=== PATIENT | male | born 1950 | race African-American/Black ===

== ENCOUNTER 2016-12-06 14:27 | Inpatient (IN) | payer MEDICARE, BC ==
[2016-12-06] MEDS ORDERED: Ibuprofen 200 MG TAB ONE (14:45)
[2016-12-06] MEDS ORDERED: ISOVUE-370 76%-LOCM 1 ML ONE (17:11)
[2016-12-06 17:17] LABS: Bilirubin Negative (Negative); Blood, Urine Negative (Negative); Glucose, Urine (Dipstick) Negative (Negative); Ketone, Urine Negative (Negative); Nitrite Negative (Negative); Protein, Urine (Dipstick) Trace mg/dL (Neg-Trace); Urobilinogen 0.2 mg/dL (0.2-1.0)
[2016-12-06 17:43] LABS: #Lymphocytes 0.9 thou/uL (1.20-3.40); #Monocytes 0.5 thou/uL (0.11-0.59); #Neutrophils 7.2 thou/uL (1.40-6.50); %Basophils 0.3 % (0.0-1.0); %Eosinophils 0.2 % (0.0-10.0); %Lymphocytes 10.1 % (21.0-51.0); %Monocytes 5.7 % (0.0-10.0); Hematocrit 39.3 % (42.0-52.0); Mean Platelet Volume 8.6 fL (7.4-10.4); Red Blood Cell (RBC) Count 4.42 mill/uL (4.70-6.10); White Blood Cell (WBC) Count 8.6 thou/uL (4.8-10.8)
[2016-12-06 17:52] LABS: Lactic Acid - Sepsis 0.9 mmol/L (0.5-2.2)
[2016-12-06 18:08] LABS: ALT (SGPT) 8 U/L (8-55); AST (SGOT) 11 U/L (5-34); Alkaline Phosphatase 63 U/L (40-150); Anion Gap 12 mmol/L (10-20); BUN (Urea Nitrogen) 20 mg/dL (8.4-25.7); Bilirubin, Total 0.5 mg/dL (0.2-1.2); CK (CPK) 194 U/L (30-200); Calc. Creatinine Clearance 0 mL/min (70-130); Calcium 9.1 mg/dL (7.8-10.44); Carbon Dioxide 23 mmol/L (23-31); Chloride 102 mmol/L (98-107); Estimated GFR-MDRD 42; Globulin 3.4 g/dL (2.4-3.5); Lipase 27 U/L (8-78); Protein, Total 7.4 g/dL (5.8-8.1)
[2016-12-06 18:10] LABS: Troponin I Less than 0.010 ng/mL (< 0.028)
--- NOTE | 2016-12-06 20:27 | RAD ---
ONE VIEW CHEST: Comparison: 06-20-09 FINDINGS: Normal cardiac silhouette. The pulmonary vessels and hilum are normal. Costophrenic angles are clear . No masses or consolidation. No pneumothorax or osseous abnormality. Scarring or atelectasis in the left lung base. IMPRESSION: No acute cardiopulmonary process. POS: [facility]
[2016-12-06 20:30] LABS: PTT 31.9 SEC (22.9-36.1); Prothrombin Time 14.1 SEC (12.0-14.7)
[2016-12-06] MEDS ORDERED: cefTRIAXone\\ROCEPHIN 1 GM VIAL ONE (20:37)
[2016-12-06 21:15] LABS: Troponin I Less than 0.010 ng/mL (< 0.028)
--- NOTE | 2016-12-06 22:12 | CT ---
NONCONTRAST HEAD CT: History: Weakness. Comparison: None. Technique: Noncontrast head CT is performed from skull base to skull vertex. FINDINGS: No parenchymal hemorrhage. No extraaxial hematoma. No midline shift. Basilar cisterns are patent. Br ain volume is age appropriate. Cortical ghotra white matter differentiation is preserved. Ventricles and sulci are patent and symmetric. Calvarium is intact. Adequate aeration of the sinuses and mastoid air cells. IMPRESSION: No acute intracranial process. POS: [facility]
--- NOTE | 2016-12-06 22:47 | CT ---
CT AORTOGRAM OF THE CHEST: History: Body aches, cough, weakness. Comparison: None. Technique: CT angiogram of the chest was performed in the axial plane. Coronal and bilateral oblique 3D reformatted images are submitted for interpretation. FINDINGS: Trachea and central bronchi are patent. Linear opacities in both lower lobes likely due to scarring or atelectasis. More focal opacification in both lower lobes may represent atelectasis or infiltrate . There is no pleural effusion. No pneumothorax. No mediastinal mass, lymphadenopathy or hematoma. Heart size is within normal limits. There are jordin nary calcifications. The thoracic aorta and the abdominal aorta have an overall normal caliber. No p eriaortic fat stranding. Visualized upper solid organs are grossly unremarkable. Right renal cyst, m easuring 4.2 cm is noted. The gallbladder is surgically absent. There is also a cyst in the left kid yoshi measuring 1.6 cm. There are no osteoblastic or osteolytic lesions. Suboptimal evaluation of the pulmonary artery system due to inadequate contrast opacification second agustin to mistiming of bolus. There is adequate contrast opacification of the central pulmonary arteries without filling defects. Evaluation of lobar, segmental and subsegmental arteries is limited. IMPRESSION: 1. Limited evaluation of the pulmonary arterial system due to timing of bolus. 2. No central pulmonary embolus. The lobar, segmental, and subsegmental arteries cannot be adequatel y assessed. 3. Opacities in the lung bases represent areas of scarring and atelectasis. Possible infiltrates in the left and right lung base cannot be completely excluded. Continued surveillance is recommended. 4. Bilateral renal cysts. POS: [facility]
[2016-12-06] MEDS ORDERED: Sodium Chloride 0.9% 1,000 ML IV SCH (23:47)
[2016-12-06 23:50] LABS: Troponin I Less than 0.010 ng/mL (< 0.028)
[2016-12-07 02:59] LABS: Troponin I 0.018 ng/mL (< 0.028)
[2016-12-07] MEDS ORDERED: Pepto Bismol Chew TAB PO PRN (08:16)
[2016-12-07] MEDS ORDERED: Ondansetron HCl/PF 4 MG/2 ML Vial IVP PRN (08:16)
--- NOTE | 2016-12-07 08:29 | HP ---
DATE OF SERVICE: 12/07/2016 HISTORY OF PRESENT ILLNESS: This is a 65-year-old black male with diarrhea. The patient was doing well until Wednesday evening after having dinner he developed acute onset of diarrhea. He had chicke n, cabbage, cornbread and gravy for dinner. Immediately afterwards, he began having nausea and diar bora. He did not complain of any fever. This progressed throughout Wednesday night and Wednesday. He also had diarrhea this morning. He does not complain of any chest pain. His abdomen is queasy, but does not complain of pain. He is doing well other than diarrhea. He states he has had this once i n the past. PAST MEDICAL HISTORY: Hypertension, hyperlipidemia, headaches, SVT, prostate cancer 09/2008. PAST SURGICAL HISTORY: Inguinal hernia repair bilaterally, removal of foreign body left lung, colon oscopy with polyp resection in 11/2013, prostate cancer treated with external beam radiation. FAMILY HISTORY: Father from a CVA. Mother with diabetes and CVA, sister with breast cance r, brother with prostate cancer. Sister with lung cancer. Paternal uncle with heart disease. 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 He is [place] and has 2 sons. He does not smoke, does not drink. MEDICATIONS: Aspirin 81 mg daily, omeprazole 40 mg daily, simvastatin 40 daily, Norvasc 5 mg daily, carvedilol 12.5 b.i.d. ALLERGIES: None. PHYSICAL EXAMINATION: VITAL SIGNS: Temperature 100.2, pulse 105, respirations 16, pulse oximetry 94, blood pressure 143/6 5. GENERAL: In no acute distress. HEENT: Clear. HEART: Regular rate and rhythm. LUNGS: Clear. ABDOMEN: Soft, nontender. EXTREMITIES: No edema. LABORATORY: Urine; specific gravity 1.024, negative for protein. Sodium 133, potassium 3.9, creati nine 1.93. Troponin less than 0.010, lipase 27. CTA of the chest and thorax negative. Brain CT ne gative. Chest x-ray negative. ASSESSMENT: 1. Acute gastroenteritis. 2. Fever. 3. Acute kidney disease, rule out chronic kidney disease. 4. Hypertension. 5. Hyperlipidemia. 6. History of supraventricular tachycardia. 7. History of prostate cancer. PLAN: 1. Hydrate. 2. Stool studies. 3. Monitor creatinine. 4. Resume home medications.
[2016-12-07] MEDS ORDERED: Sodium Chloride 0.9% 1,000 ML IV SCH (08:30)
[2016-12-07] MEDS ORDERED: Non-Formulary Item 1 EACH (Carvedilol [Carvedilol] 12.5 MG) PO SCH (09:00)
[2016-12-07] MEDS: Famotidine/PF 20 mg/2ml Vial SLOW IVP SCH ×2 (09:41→20:30)
[2016-12-07] MEDS: Carvedilol 6.25 MG TAB PO SCH ×2 (09:41→20:30)
[2016-12-07] MEDS: Enoxaparin Sodium 40 MG/0.4 ML SYRINGE SC SCH (09:42)
[2016-12-07] MEDS: NS 0.9% w/ 20 MEQ KCL 1,000 ML IV SCH ×2 (10:11→20:55)
[2016-12-07] MEDS ORDERED: Acetaminophen 325 MG TAB PO PRN (13:39)
[2016-12-07] MEDS ORDERED: HYDROcodone/Acetaminophen 7.5/325 mg Tablet PO PRN ×2 (13:44→16:48)
[2016-12-07] MEDS: Acetaminophen 650 MG Suppository PR PRN ×2 (13:44→20:42)
[2016-12-07 13:58] LABS: #Lymphocytes 0.8 thou/uL (1.20-3.40); #Monocytes 0.5 thou/uL (0.11-0.59); #Neutrophils 9.4 thou/uL (1.40-6.50); %Eosinophils 0.1 % (0.0-10.0); %Lymphocytes 7.8 % (21.0-51.0); %Monocytes 4.9 % (0.0-10.0); Hematocrit 38.7 % (42.0-52.0); Mean Platelet Volume 8.8 fL (7.4-10.4); Red Blood Cell (RBC) Count 4.33 mill/uL (4.70-6.10); White Blood Cell (WBC) Count 10.8 thou/uL (4.8-10.8)
[2016-12-07 14:22] LABS: ALT (SGPT) 7 U/L (8-55); AST (SGOT) 15 U/L (5-34); Alkaline Phosphatase 58 U/L (40-150); Anion Gap 16 mmol/L (10-20); BUN (Urea Nitrogen) 16 mg/dL (8.4-25.7); Bilirubin, Total 0.3 mg/dL (0.2-1.2); Calc. Creatinine Clearance 59 mL/min (70-130); Calcium 8.5 mg/dL (7.8-10.44); Carbon Dioxide 18 mmol/L (23-31); Chloride 105 mmol/L (98-107); Estimated GFR-MDRD 50; Globulin 3.3 g/dL (2.4-3.5); Protein, Total 6.9 g/dL (5.8-8.1)
--- NOTE | 2016-12-07 14:34 | CON ---
DATE OF CONSULTATION: 12/07/2016 GI INPATIENT CONSULTATION NOTE REQUESTING PHYSICIAN: Dr. Fragoso. REASON FOR CONSULTATION: Diarrhea. HISTORY OF PRESENT ILLNESS: Clark Corbett is a very pleasant, 66-year-old -[place] gentlema n who was admitted to the hospital overnight with dehydration and acute diarrhea. He has previously seen my GI colleague, Dr. Alfonso Eubanks. His last screening colonoscopy in 2013 showed only a small single tubular adenoma, which was removed with repeat exam in 5 years recommended. That woul d be 2019. He has a history of prostate cancer status post radiation therapy in 2008 as well as cele ateral inguinal hernia repair. He has no chronic gastrointestinal symptoms. Two nights ago, he had the sudden acute onset of watery diarrhea. He estimates at least 5 watery loose bowel movements pe r day over the course of the weekend, including today. He was having some subjective fevers at home and indeed on presentation, he is afebrile here up to 103. He was found on lab work to be signific antly dehydrated with creatinine up to 1.9, CK 208. He actually had a syncopal episode this morning , fell down and suffered a forehead laceration. He was not having any symptoms prior 2 days ago. W ith all this diarrhea, he denies any significant nausea, any vomiting or abdominal pain. His stool is normal in color. There is no melena or hematochezia. Stool studies were performed, which showed elevated fecal lactoferrin, but are negative for C. difficile and other bacterial pathogens. REVIEW OF SYSTEMS: Full review of systems including constitutional, head, eyes, ears, nose, throat, GI, , cardiovascular, respiratory, musculoskeletal, and neurologic systems is negative except as noted in the HPI. PAST MEDICAL HISTORY: 1. Colon polyp, adenoma removed at 2013. 2. Hypertension 3. Hyperlipidemia. 4. SVT. 5. Prostate cancer status post radiation therapy 2008. 6. Bilateral inguinal hernia repair. ALLERGIES: No known drug allergies. OUTPATIENT MEDICATIONS: Aspirin 81 mg daily, omeprazole 40 mg daily, Zocor 40 mg daily, Norvasc 5 m g daily, Coreg. FAMILY HISTORY: Negative for gastrointestinal malignancy. SOCIAL HISTORY: No smoking or alcohol use. PHYSICAL EXAMINATION: VITAL SIGNS: Temperature 103 degrees Fahrenheit, pulse 95, blood pressure 144/73, 94% oxygen satura tion on room air. GENERAL APPEARANCE: No acute distress. SKIN: He has a laceration to the forehead. No jaundice. No other rashes were palpable. EYES: No scleral icterus. Extraocular movements intact. ENT: Mucous membranes moist, no oral lesions. LYMPH: No submandibular or supraclavicular lymphadenopathy. THYROID: Nontender to palpation. HEART: Regular rate and rhythm. LUNGS: Clear to auscultation bilaterally. ABDOMEN: Bowel sounds present. Soft and nontender to palpation throughout. EXTREMITIES: No peripheral edema. NEUROLOGIC: Cranial nerves II-XII intact bilaterally. VESSELS: Radial pulses 2+ bilaterally. LABORATORY STUDIES: WBC 8.6, hemoglobin 13.1, and platelets 178. INR 1.1. Sodium 133, potassium 3 .9, BUN 20, creatinine 1.93. CK elevated at 208, CK-MB normal at 0.5. Troponin negative x3. Lipas e normal at 27. LFTs all normal with total bilirubin 0.5, alkaline phosphatase 63, AST 11, ALT 8, a lbumin 4.0. Urinalysis is negative. Stool studies show elevated fecal lactoferrin, but otherwise n egative including C. difficile antigen and toxin, Campylobacter and stool culture so far. IMAGING STUDIES: Chest x-ray showed no acute processes. CT head was normal. CT angiogram of the t horax demonstrated no evidence of pulmonary embolus. There is some scarring at the lung bases bilat erally. ASSESSMENT AND PLAN: Acute gastroenteritis, likely viral. The patient's presentation is all acute, it appears with severe dehydration secondary to acute onset diarrhea over the past couple of days. I note the elevated fecal lactoferrin. This is nonspecific and expected to be elevated with acute gastroenteritis. This likely represents a viral gastroenteritis. Continue supportive cares as you are doing. No indication for any endoscopic investigations or other specialized diagnostics from a GI standpoint at this time. Thank you for the consultation. Please call with questions or concerns.
[2016-12-08] MEDS: Loperamide HCl 2 MG CAP PO PRN ×2 (00:19→14:45)
[2016-12-08] MEDS: NS 0.9% w/ 20 MEQ KCL 1,000 ML IV SCH ×3 (04:04→22:47)
[2016-12-08 06:16] LABS: #Lymphocytes 1.1 thou/uL (1.20-3.40); #Monocytes 0.5 thou/uL (0.11-0.59); #Neutrophils 5.5 thou/uL (1.40-6.50); %Basophils 0.2 % (0.0-1.0); %Eosinophils 0.1 % (0.0-10.0); %Lymphocytes 15.6 % (21.0-51.0); %Monocytes 6.6 % (0.0-10.0); Hematocrit 36.9 % (42.0-52.0); Mean Platelet Volume 8.7 fL (7.4-10.4); Red Blood Cell (RBC) Count 4.13 mill/uL (4.70-6.10); White Blood Cell (WBC) Count 7.1 thou/uL (4.8-10.8)
[2016-12-08 06:19] VITALS: BMI 28.5
[2016-12-08 06:38] LABS: Anion Gap 11 mmol/L (10-20); BUN (Urea Nitrogen) 14 mg/dL (8.4-25.7); Calc. Creatinine Clearance 58 mL/min (70-130); Calcium 8.7 mg/dL (7.8-10.44); Carbon Dioxide 21 mmol/L (23-31); Chloride 108 mmol/L (98-107); Estimated GFR-MDRD 51
--- NOTE | 2016-12-08 07:58 | CON ---
DATE OF CONSULTATION: 12/07/2016 TIME: 5:00 p.m. HISTORY OF PRESENT ILLNESS: This is a 66-year-old black male admitted for severe diarrhea who while in the hospital had a syncopal episode and fell and hit his head, questionable loss of consciousnes s. He has no complaints except for slight pain in the right forehead area above his right eye where a laceration is present, no blurred vision, no difficulty breathing through his nose, no numbness. PAST MEDICAL HISTORY: Hypertension, hyperlipidemia, SVT, prostate cancer. PAST SURGICAL HISTORY: Inguinal hernia repair, removal of foreign body of left lung, colonoscopy. FAMILY HISTORY: Noncontributory to this situation. 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 Does not smoke or drink. MEDICATIONS: Listed in MAR. ALLERGIES: There are no known drug allergies. PHYSICAL EXAMINATION: VITAL SIGNS: Patient's vital signs are currently stable, he is afebrile. GENERAL: He is awake, alert, oriented x3, in no acute distress. He does have an approximately 5.5 cm laceration extending from the right medial eyebrow all the way across and superior to the right lateral eyebrow, this is deep, it goes down to pericranium. There is some retraction of the subgale al tissue. It is fairly linear in shape. He also has another 1 cm laceration to the bridge of his nose. His nares is patent bilaterally. There is no blood in his nares. His pupils are equal, roun d, and reactive to light and accommodation. His occlusion is good. His maxilla is stable. No crep itus or deformity is noted of orbital rims or nasal bones. No nasal septal hematoma on speculum exa m. ASSESSMENT: A 66-year-old male status post syncopal episode and fall with complex laceration to the forehead and simple laceration to the bridge of the nose. PLAN: Will washout wounds at the bedside and close at the bedside.
--- NOTE | 2016-12-08 08:04 | OP ---
DATE OF PROCEDURE: 12/07/2016 SURGEON: Marcos Houston D.D.S. PREOPERATIVE DIAGNOSES: 1. Complex right forehead laceration. 2. Simple bridge of nose laceration. PROCEDURE PERFORMED: 1. Washout and closure of right forehead laceration. 2. Washout and closure of the bridge of nose laceration. COMPLICATIONS: None. DRAINS: None. SPECIMENS: None. ANESTHESIA: Local anesthesia at bedside. ESTIMATED BLOOD LOSS: Minimal, less than 5 mL. BRIEF PATIENT HISTORY AND PROCEDURE IN DETAIL: This is a 66-year-old man admitted for diarrhea with a syncopal episode in the hospital, fell, sustained the above noted lacerations. The patient was p repped in sterile fashion, normal saline irrigation of both wounds. The small 1 cm laceration of th e root of the nose was very superficial through skin and subcutaneous tissue. This was irrigated wi th normal saline and closed with a 5-0 Prolene. Forehead laceration was very deep with retraction o f the subgaleal tissues and exposure of the pericranium. This was irrigated thoroughly, closed in a layered fashion with deep 4-0 Vicryl followed by skin with 4-0 silk. The patient tolerated the pro cedure well. A pressure dressing was placed after Steri-Strip application. Will plan on suture rem oval in 7 days. DISPOSITION: The patient was stable upon completion of the procedure.
--- NOTE | 2016-12-08 08:40 | PRG ---
DATE OF SERVICE: 12/08/2016 SUBJECTIVE: The patient is doing well. Last diarrhea was at midnight, last night. Does not have m uch of an appetite yet. No complaints of abdominal pain, nausea, or vomiting. OBJECTIVE: VITAL SIGNS: Temperature 98.3, pulse 79, respirations 16, pulse ox 97, blood pressure 123/72. HEENT: Forehead laceration repair by Dr. Houston. Dressing clear. Pupils equal, reactive. Extrao cular movements intact. HEART: Regular rate and rhythm. LUNGS: Clear. ABDOMEN: Soft. EXTREMITIES: Left arm appears swollen from the IV. LABORATORY DATA: Urine clear. Sodium 136, potassium 4.0, CO2 21 up from 18, creatinine 1.64. Stoo l culture is negative. C. difficile screen negative. ASSESSMENT: 1. Acute gastroenteritis, probably viral in origin. 2. Dehydration. 3. Prerenal azotemia, creatinine improving to 1.64 today. 4. Fever, resolved. 5. Hypertension. 6. Hyperlipidemia. 7. History of supraventricular tachycardia. 8. History of prostate cancer. PLAN: 1. Continue hydration today. 2. Change IV to the other arm due to edema. 3. Recheck CBC and creatinine in the a.m. 4. Possibly discharge home in the a.m. 5. Advance to full liquid diet with no dairy.
[2016-12-08] MEDS: Carvedilol 6.25 MG TAB PO SCH ×2 (09:43→22:53)
[2016-12-08] MEDS: Enoxaparin Sodium 40 MG/0.4 ML SYRINGE SC SCH (09:44)
[2016-12-08] MEDS: Famotidine/PF 20 mg/2ml Vial SLOW IVP SCH ×2 (11:55→22:53)
[2016-12-09 06:08] LABS: #Eosinphils 0.1 thou/uL (0.0-0.7); #Lymphocytes 1.3 thou/uL (1.20-3.40); #Monocytes 0.7 thou/uL (0.11-0.59); #Neutrophils 2.8 thou/uL (1.40-6.50); %Basophils 0.3 % (0.0-1.0); %Eosinophils 2.1 % (0.0-10.0); %Lymphocytes 26.8 % (21.0-51.0); %Monocytes 14.6 % (0.0-10.0); Hematocrit 34.4 % (42.0-52.0); Mean Platelet Volume 8.9 fL (7.4-10.4); Red Blood Cell (RBC) Count 3.83 mill/uL (4.70-6.10); White Blood Cell (WBC) Count 4.9 thou/uL (4.8-10.8)
[2016-12-09 06:35] LABS: Anion Gap 13 mmol/L (10-20); BUN (Urea Nitrogen) 11 mg/dL (8.4-25.7); Calc. Creatinine Clearance 68 mL/min (70-130); Calcium 8.4 mg/dL (7.8-10.44); Carbon Dioxide 18 mmol/L (23-31); Chloride 109 mmol/L (98-107); Estimated GFR-MDRD 60
[2016-12-09] MEDS: NS 0.9% w/ 20 MEQ KCL 1,000 ML IV SCH (06:52)
[2016-12-09] MEDS: Carvedilol 6.25 MG TAB PO SCH (08:42)
[2016-12-09] MEDS: Famotidine/PF 20 mg/2ml Vial SLOW IVP SCH (08:43)
[2016-12-09] MEDS: Enoxaparin Sodium 40 MG/0.4 ML SYRINGE SC SCH (08:43)
[2016-12-09 12:19] VITALS: BP 144/75; TEMP 98.9
--- NOTE | 2016-12-09 17:19 | DIS ---
DATE OF ADMISSION: 12/07/2016 DATE OF DISCHARGE: 12/09/2016 DISCHARGE DIAGNOSES: 1. Acute gastroenteritis, viral in origin. 2. Dehydration. 3. Syncope. 4. Prerenal azotemia. 5. Fever, resolved. 6. Facial laceration. 7. Hypertension. 8. Hyperlipidemia. 9. History of supraventricular tachycardia. 10. History of prostate cancer. FOLLOWUP: 1. Follow up [address] Eduin Fragoso and on Wednesday for suture removal. 2. Follow up with Dr. Houston as directed. 3. [place] diet. Avoid dairy products. BRIEF HISTORY: This is a 66-year-old black male with a history of hypertension, hyperlipidemia, was doing well until one day prior to admission, developed acute onset of diarrhea. This persisted thr oughout the day. He then presented to the emergency room and was found to be significantly dehydrat ed with an elevated creatinine. He was then admitted for hydration and evaluation. HOSPITAL COURSE: Patient is doing well. He has had minimal abdominal pain. He had marked diarrhea for 24-36 hours. However, his diarrhea has significantly improved. Today we will advance him to a regular diet avoiding dairy and if he does well, he will be discharged this afternoon. He will fol low up in the office in the a.m. and also on Wednesday for suture removal. During the hospital stay, rohith horton was on his way to the bathroom and passed out and hit his head. He sustained a right forehead lac eration over his eyebrow. Dr. Houston was consulted and did the repair. Patient is doing well. He previously had a CT of his head, which was found to be unremarkable. Patient complains of minimal pain. At this time, he has no headache, no nausea, no vomiting. He is doing well. He is ambulatin g to the bathroom without difficulty, but with assistance. Today he will ambulate the singletary and if rohith horton does well, should be able to go home. DISCHARGE MEDICATIONS: 1. Aspirin 81 daily. 2. Omeprazole 40 daily. 3. Simvastatin 40 daily. 4. Norvasc 5 mg daily. 5. Carvedilol 12.5 p.o. b.i.d. LABORATORY DATA AND IMAGING: CT head negative. Chest x-ray negative. Chest CTA negative. White c ount 4.9, H\T\H 11 and 34, creatinine was 1.65-1.64-1.41. Initial creatinine was 1.93.
--- NOTE | 2016-12-12 11:45 | EKG ---
Test Reason : Blood Pressure : / mmHG Vent. Rate : 090 BPM Atrial Rate : 090 BPM P-R Int : 210 ms QRS Dur : 080 ms QT Int : 346 ms P-R-T Axes : 052 011 062 degrees QTc Int : 423 ms Sinus rhythm with 1st degree A-V block Nonspecific T wave abnormality Abnormal ECG Confirmed by JAMES ALEXANDER, NILO (12), offline editor SUMMER TIAN ([id number]) on 12/12/2016 11:45:11 AM Referred By: Confirmed By:NILO RAMIREZ MD
--- NOTE | 2016-12-12 11:45 | EKG ---
Test Reason : BODY ACHES Blood Pressure : / mmHG Vent. Rate : 088 BPM Atrial Rate : 088 BPM P-R Int : 204 ms QRS Dur : 082 ms QT Int : 338 ms P-R-T Axes : 056 006 069 degrees QTc Int : 408 ms Normal sinus rhythm Septal infarct , age undetermined Abnormal ECG Confirmed by JAMES ALEXANDER, NILO (12), offline editor SUMMER TIAN ([id number]) on 12/12/2016 11:45:06 AM Referred By: JAMES Confirmed By:NILO RAMIREZ MD
== END 2016-12-09 14:42 | disposition home or self-care (01) | DRG 392 ==
LOC: ERS 14:27 → 2SW 22:30 → OBSVTOIN 12-07 12:03 → 2NO 12-07 13:02 → 2SW 12-07 13:09 → 2NO 12-07 15:49
PROVIDERS: ADMIT Family Medicine; ATTEND Family Medicine
PROC: 0JQ13ZZ Repair Face Subcutaneous Tissue and Fascia, Percutaneous Approach (ICD-10-PCS; principal; 2016-12-07)
PROC: 0JQ13ZZ Repair Face Subcutaneous Tissue and Fascia, Percutaneous Approach (ICD-10-PCS; 2016-12-07)
DX: A08.4 Viral intestinal infection, unspecified (principal); N17.9 Acute kidney failure, unspecified; I47.1 Supraventricular tachycardia; K52.9 Noninfective gastroenteritis and colitis, unspecified; I10 Essential (primary) hypertension; E78.5 Hyperlipidemia, unspecified; Z85.46 Personal history of malignant neoplasm of prostate; Z92.3 Personal history of irradiation; Z86.010 Personal history of colon polyps; R55 Syncope and collapse; S01.21XA Laceration without foreign body of nose, initial encounter; S01.81XA Laceration without foreign body of other part of head, initial encounter; W18.30XA Fall on same level, unspecified, initial encounter; Y92.230 Patient room in hospital as the place of occurrence of the external cause; E86.0 Dehydration; Z79.82 Long term (current) use of aspirin
CPT/HCPCS: 36415; 70450; 71010; 71275; 80048; 80053; 81003; 82550; 82553; 83605; 83630; 83690; 83880; 84146; 84484; 85025; 85379; 85610; 85730; 87015; 87040; 87045; 87046; 87077; 87081; 87186; 87324; 87449; 87899; 93005; 96361; 96365; A4216; J0696; J1650; J2405; S0028

== ENCOUNTER 2017-04-28 16:39 | Inpatient (IN) | payer MEDICARE, BC ==
[2017-04-28 17:13] LABS: #Eosinphils 0.2 thou/uL (0.0-0.7); #Lymphocytes 2.7 thou/uL (1.20-3.40); #Monocytes 0.5 thou/uL (0.11-0.59); #Neutrophils 4.5 thou/uL (1.40-6.50); %Basophils 0.3 % (0.0-1.0); %Lymphocytes 34.3 % (21.0-51.0); %Neutrophils 57.4 % (42.0-75.0); Hemoglobin 13.7 g/dL (14.0-18.0); Mean Corpuscular HGB CONC 32.6 g/dL (32.0-36.0); Mean Corpuscular Hemoglobin 29.7 pg (27.0-31.0); Mean Corpuscular Volume 91.2 fl (80.0-94.0); Mean Platelet Volume 8.4 fL (7.4-10.4); Platelet Count 219 thou/uL (130-400); RBC Distribution Width 12.8 % (11.5-14.5); Red Blood Cell (RBC) Count 4.61 mill/uL (4.70-6.10); White Blood Cell (WBC) Count 7.8 thou/uL (4.8-10.8)
[2017-04-28 17:35] LABS: ALT (SGPT) 9 U/L (8-55); AST (SGOT) 13 U/L (5-34); Albumin 4.5 g/dL (3.4-4.8); Alkaline Phosphatase 74 U/L (40-150); Anion Gap 14 mmol/L (10-20); BUN (Urea Nitrogen) 16 mg/dL (8.4-25.7); Bilirubin, Total 0.4 mg/dL (0.2-1.2); CK (CPK) 195 U/L (30-200); Calc. Creatinine Clearance 0 mL/min (70-130); Calcium 9.7 mg/dL (7.8-10.44); Carbon Dioxide 25 mmol/L (23-31); Chloride 104 mmol/L (98-107); Estimated GFR-MDRD 53; Globulin 3.3 g/dL (2.4-3.5); Glucose 107 mg/dL (80-115); Potassium 3.9 mmol/L (3.5-5.1); Protein, Total 7.8 g/dL (5.8-8.1); Sodium 139 mmol/L (136-145)
[2017-04-28 17:40] LABS: CKMB 1.4 ng/mL (0-6.6); Troponin I 0.044 ng/mL (< 0.028)
--- NOTE | 2017-04-28 18:50 | RAD ---
CHEST TWO VIEW 04/28/17 HISTORY: Chest pain COMPARISON: Chest one view 12/06/16. FINDINGS: The lungs are clear. No pneumothorax or effusion. Cardiac silhouette and mediastinal contours are wit hin normal limits. Similar appearance of scarring in the left lower lobe. There appears to be interposition of bowel between the left hemidiaphragm and the spleen, also a roxi lar finding. No acute osseous abnormality. IMPRESSION: No acute intrathoracic abnormality. No significant change. POS: [facility]
[2017-04-28] MEDS ORDERED: Acetaminophen 325 MG TAB PO PRN (20:20)
[2017-04-28] MEDS ORDERED: Ondansetron ODT 4 MG TAB SL PRN (20:20)
[2017-04-28] MEDS ORDERED: Ondansetron HCl/PF 4 MG/2 ML Vial IVP PRN (20:20)
[2017-04-28 20:25] VITALS: BMI 25.8
[2017-04-28] MEDS ORDERED: Aspirin 325 MG TAB PO SCH (20:30)
[2017-04-28 20:52] LABS: Troponin I 0.042 ng/mL (< 0.028)
[2017-04-28] MEDS: Melatonin 3 MG TAB PO PRN (22:52)
[2017-04-28 23:29] LABS: Troponin I 0.036 ng/mL (< 0.028)
[2017-04-29] MEDS ORDERED: Nitroglycerin 2% Ointment 1 INCH/1 GM Packet TOP SCH (04:00)
[2017-04-29] MEDS: Carvedilol 6.25 MG TAB PO SCH ×2 (08:30→20:54)
[2017-04-29] MEDS ORDERED: Enoxaparin Sodium 80 MG/0.8 ML SYRINGE SC SCH ×2 (09:00)
[2017-04-29] MEDS ORDERED: Aspirin 325 MG TAB PO SCH (09:00)
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
[2017-04-29] MEDS ORDERED: Lidocaine 1% (PF) 30 ML VIAL ONE (10:58)
[2017-04-29] MEDS ORDERED: Nitroglycerin 100MG/250ML BOT 250 ML ONE (10:59)
[2017-04-29] MEDS ORDERED: Heparin 10,000 UNITS/1 ML VIAL ONE (10:59)
[2017-04-29] MEDS ORDERED: Verapamil 5 MG/2 ML VIAL ONE (10:59)
[2017-04-29] MEDS ORDERED: Communication Order-Pharmacy FS SCH (11:00)
[2017-04-29] MEDS ORDERED: Sodium Chloride 0.9% 1,000 ML IV SCH (11:00)
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
[2017-04-29] MEDS ORDERED: Iopamidol 370 76% 50 ML VIAL FS ONE (11:35)
[2017-04-29] MEDS ORDERED: Iopamidol 370 76% 100 ML VIAL ONE (11:35)
[2017-04-29] MEDS ORDERED: Midazolam HCl 2 mg/2 ml Vial ONE (11:40)
[2017-04-29] MEDS ORDERED: Fentanyl 100 MCG/2 ML VIAL ONE (11:40)
--- NOTE | 2017-04-29 11:46 | ULT ---
ABDOMINAL ULTRASOUND: History: Upper abdominal pain and right sided pain. FINDINGS: Real-time images of the upper abdomen demonstrate a normal appearing gallbladder. No gallbladder wall thickening. The common duct is 4 mm. Technologist reports a negative ultrasound Hardy's sign. Liver measures 16 cm in length. No focal abnormalities. The right and left kidneys are normal in size. The right kidney measures 11.7 and the left kidney 10 cm in size. There is a 6.3 x 4 cm right renal cyst present and a small left renal cyst measuring 1.6 cm. Both kidneys appear to be of mild increased echogenicity. Contour of the left kidney is somewhat lobulated. The pancreas is obscured. There is also partial obscuration of the abdominal aorta and IVC mainly dis tally. No aneurysm is demonstrated. Imaging of the right lower quadrant failed to definitely identify an appendix. IMPRESSION: 1. Bilateral renal cysts with suggestion of some slight increased echogenicity to both kidneys sugges ting the possibility of some underlying medial renal parenchymal disease. 2. No evidence of gallstones. 3. Appendix was not definitely visualized. If there is strong clinical suspicion of appendix, CT woul d be recommended. POS: [facility]
[2017-04-29] MEDS ORDERED: TICAGRELOR 90 MG TABLET ONE (12:45)
[2017-04-29] MEDS ORDERED: Nitroglycerin 0.4 MG TAB 1 EACH SL PRN (12:49)
[2017-04-29] MEDS ORDERED: Morphine 5 MG/ML SYRINGE SLOW IVP PRN (13:06)
[2017-04-29] MEDS: Sodium Chloride 0.9% 1,000 ML IV SCH ×2 (13:10→22:30)
[2017-04-29] MEDS: TICAGRELOR 90 MG TABLET PO SCH (20:50)
[2017-04-29] MEDS: Melatonin 3 MG TAB PO PRN (20:54)
[2017-04-29] MEDS ORDERED: Atorvastatin Calcium 20 MG TAB PO SCH (21:00)
[2017-04-29] MEDS ORDERED: Amlodipine 5 MG TAB PO SCH (21:00)
[2017-04-30 04:56] LABS: #Eosinphils 0.2 thou/uL (0.0-0.7); #Lymphocytes 1.7 thou/uL (1.20-3.40); #Monocytes 0.6 thou/uL (0.11-0.59); #Neutrophils 3.7 thou/uL (1.40-6.50); %Basophils 0.2 % (0.0-1.0); %Monocytes 8.9 % (0.0-10.0); %Neutrophils 59.8 % (42.0-75.0); Mean Corpuscular Hemoglobin 29.7 pg (27.0-31.0); Mean Corpuscular Volume 89.9 fl (80.0-94.0); Mean Platelet Volume 8.6 fL (7.4-10.4); Platelet Count 173 thou/uL (130-400); RBC Distribution Width 12.6 % (11.5-14.5); Red Blood Cell (RBC) Count 3.72 mill/uL (4.70-6.10); White Blood Cell (WBC) Count 6.1 thou/uL (4.8-10.8)
[2017-04-30 05:39] LABS: ALT (SGPT) 7 U/L (8-55); AST (SGOT) 11 U/L (5-34); Albumin 3.4 g/dL (3.4-4.8); Alkaline Phosphatase 55 U/L (40-150); Anion Gap 9 mmol/L (10-20); BUN (Urea Nitrogen) 15 mg/dL (8.4-25.7); Bilirubin, Total 0.5 mg/dL (0.2-1.2); Calc. Creatinine Clearance 66 mL/min (70-130); Calcium 8.8 mg/dL (7.8-10.44); Carbon Dioxide 25 mmol/L (23-31); Chloride 107 mmol/L (98-107); Estimated GFR-MDRD 66; Globulin 2.3 g/dL (2.4-3.5); Glucose 93 mg/dL (80-115); Potassium 4.2 mmol/L (3.5-5.1); Protein, Total 5.7 g/dL (5.8-8.1); Sodium 137 mmol/L (136-145)
[2017-04-30] MEDS: TICAGRELOR 90 MG TABLET PO SCH (07:27)
[2017-04-30] MEDS: Carvedilol 6.25 MG TAB PO SCH (07:27)
[2017-04-30] MEDS ORDERED: Lisinopril 2.5 MG TAB PO SCH (09:00)
--- NOTE | 2017-04-30 10:50 | PRG ---
DATE OF SERVICE: 04/30/2017 SUBJECTIVE: The patient is doing well, postop day #1, status post heart catheterization. No complai nts of any chest pain, shortness of breath. No complaints of nausea. Tolerating a regular diet. OBJECTIVE: VITAL SIGNS: Temperature 98.2, pulse 72, respirations 16, pulse ox 97, blood pressure 133/64. HEART: Regular rate and rhythm. LUNGS: Clear. ABDOMEN: Soft. EXTREMITIES: No edema. LABORATORY DATA: White count 6.1, H&H 11 and 33. Electrolytes normal. Creatinine 1.3, BUN 15. ASSESSMENT: 1. Acute myocardial infarction with the EKG showing improvement at V6. Left bundle-branch block rem ains. 2. Postop day #1, status post heart catheterization with placement of stent x1. The one area of con cern, which was unable to be stented. 3. Hypertension. 4. Hyperlipidemia. 5. Reflux. 6. Prostatitis. 7. Right lower quadrant abdominal pain. We will continue to monitor. PLAN: 1. Possible discharge today. 2. Informed the patient is critical that he maintain low blood pressure and normal lipids. 3. Upon discharge, we will resume his home medications. 4. We will monitor his right lower quadrant abdominal pain and if it resolved, no further workup riya l be needed.
[2017-04-30] MEDS: Sodium Chloride 0.9% 1,000 ML IV SCH (11:00)
[2017-04-30 11:06] VITALS: TEMP 97.4
[2017-04-30 11:56] VITALS: BP 129/80
--- NOTE | 2017-04-30 12:37 | PDOC.CTH ---
Cardiology Progress Note - Subjective He is doing well. His right wrist is doing well with normal radial pulse. No chest pain, tightness ,pressure, SOB. - Objective Vital Signs Temp Pulse Pulse Pulse Resp BP BP 04/30/17 10:58 97.4 F L 78 20 04/30/17 09:55 76 75 129/80 04/30/17 08:00 98.2 F 72 16 04/30/17 07:29 98.2 F 72 16 04/30/17 07:27 71 133/64 04/30/17 04:00 98.2 F 71 18 BP BP Pulse Ox Pulse Ox Pulse Ox 04/30/17 10:58 156/76 H 98 04/30/17 09:55 121/67 97 99 04/30/17 08:00 97 04/30/17 07:29 133/64 97 04/30/17 07:27 04/30/17 04:00 137/65 96 Weight 193 lb 04/29/17 04/30/17 05/01/17 06:59 06:59 06:59 Intake Total 240 240 Output Total 600 Balance -360 240 - Physical Examination General/Neuro: alert & oriented x3, NAD Neck: no JVD present Lungs: CTA, unlabored respirations Heart: RRR Abdomen: NT/ND ( ) Extremities: other: (no edema.) - Telemetry Telemetry Rhythm: NSR - Labs Result Diagrams: 04/30/17 04:17 04/30/17 04:17 Troponin/CKMB CK-MB (CK-2) 1.4 ng/mL (0-6.6) 04/28/17 17:02 Troponin I 0.036 ng/mL (< 0.028) H 04/28/17 22:57 - Assessment/Plan 1. NSTEMI 2. S/P PCI to LCx. PLAN: - BARBARA with brillinta and aspirin for 1 yr. - Statin/BB/ACEI. - Follow up in the office in 1 month. - May discharge home.
--- NOTE | 2017-04-30 13:22 | EKG ---
Test Reason : Blood Pressure : / mmHG Vent. Rate : 069 BPM Atrial Rate : 069 BPM P-R Int : 232 ms QRS Dur : 150 ms QT Int : 436 ms P-R-T Axes : 056 -49 065 degrees QTc Int : 467 ms Sinus rhythm with 1st degree A-V block Left axis deviation Left bundle branch block Abnormal ECG Confirmed by MANJULA ADHIKARI ([id number] on 04/30/2017 1:22:20 PM Referred By: ANNETTE Confirmed By:MANJULA ADHIKARI
== END 2017-04-30 12:14 | disposition home or self-care (01) | DRG 247 ==
LOC: ERS 16:39 → 2SW 18:40 → OBSVTOIN 04-29 13:32
PROVIDERS: ADMIT Family Medicine; ATTEND Family Medicine
PROC: 4A023N7 Measurement of Cardiac Sampling and Pressure, Left Heart, Percutaneous Approach (ICD-10-PCS; principal; 2017-04-29)
PROC: 027034Z Dilation of Coronary Artery, One Artery with Drug-eluting Intraluminal Device, Percutaneous Approach (ICD-10-PCS; 2017-04-29)
PROC: B2111ZZ Fluoroscopy of Multiple Coronary Arteries using Low Osmolar Contrast (ICD-10-PCS; 2017-04-29)
DX: I21.4 Non-ST elevation (NSTEMI) myocardial infarction (principal); E78.00 Pure hypercholesterolemia, unspecified; I44.7 Left bundle-branch block, unspecified; I10 Essential (primary) hypertension; N40.0 Benign prostatic hyperplasia without lower urinary tract symptoms; Z85.46 Personal history of malignant neoplasm of prostate; K21.9 Gastro-esophageal reflux disease without esophagitis; I25.10 Atherosclerotic heart disease of native coronary artery without angina pectoris
CPT/HCPCS: 36415; 71046; 76700; 80053; 82550; 82553; 84484; 85025; 85347; 92928; 93005; 93010; 93306; 93454; 93798; 94760; 99152; 99153; A4216; C1769; C1874; C9600; J1644; J1650; J2001; J2250; J3010

== ENCOUNTER 2017-07-05 19:26 | Emergency (ER) | payer MEDICARE, BC ==
--- NOTE | 2017-07-05 21:36 | RAD ---
TWO VIEWS CHEST: 07/05/2017 HISTORY: Cough and congestion. COMPARISON: 04/28/2017 FINDINGS: The lungs appear mildly hyperinflated, a stable finding. No pneumothorax, pleural fluid, focal conso lidation, or alveolar edema. Heart and mediastinal contours are unchanged. IMPRESSION: No acute findings. POS: [facility]
== END 2017-07-05 20:25 | disposition home or self-care (01) ==
LOC: ERS 19:26
DX: R05 Cough (principal); R09.81 Nasal congestion; E78.5 Hyperlipidemia, unspecified; I10 Essential (primary) hypertension; Z79.891 Long term (current) use of opiate analgesic; Z79.899 Other long term (current) drug therapy; Z79.82 Long term (current) use of aspirin
CPT/HCPCS: 71046

== ENCOUNTER 2017-07-12 16:20 | Outpatient (CLI) | payer MEDICARE, BC | END 2017-07-12 16:21 | disposition home or self-care (01) | LOC: BICRAD 16:20 | PROVIDERS: ATTEND Family Medicine | DX: J40 Bronchitis, not specified as acute or chronic (principal) | CPT/HCPCS: 71046 ==

== ENCOUNTER 2017-07-13 18:51 | Emergency (ER) | payer MEDICARE, BC ==
--- NOTE | 2017-07-13 21:08 | RAD ---
PA AND LATERAL CHEST: 07/13/17 HISTORY: Shortness of breath. COMPARISON: 07/05/17 study. Heart size is within normal limits. There are atherosclerotic changes of the aorta. The lungs are galen ar of infiltrates. There are arthritic changes of the spine. IMPRESSION: No active intrathoracic disease. POS: [facility]
== END 2017-07-13 21:21 | disposition home or self-care (01) ==
LOC: ERS 18:51
DX: J06.9 Acute upper respiratory infection, unspecified (principal); E78.5 Hyperlipidemia, unspecified; I10 Essential (primary) hypertension; Z79.899 Other long term (current) drug therapy; Z79.82 Long term (current) use of aspirin
CPT/HCPCS: 71046; 94640; J7620

== ENCOUNTER 2017-07-21 20:18 | Emergency (ER) | payer MEDICARE, BC ==
[2017-07-21 22:31] LABS: #Basophils 0.1 thou/uL (0.0-0.2); #Eosinphils 0.4 thou/uL (0.0-0.7); #Lymphocytes 1.8 thou/uL (1.20-3.40); #Monocytes 0.5 thou/uL (0.11-0.59); %Lymphocytes 26.8 % (21.0-51.0); %Monocytes 6.8 % (0.0-10.0); %Neutrophils 59.4 % (42.0-75.0); Hemoglobin 11.9 g/dL (14.0-18.0); Mean Corpuscular HGB CONC 32.6 g/dL (32.0-36.0); Mean Corpuscular Hemoglobin 29.3 pg (27.0-31.0); Mean Corpuscular Volume 89.8 fl (80.0-94.0); Mean Platelet Volume 8.3 fL (7.4-10.4); Platelet Count 187 thou/uL (130-400); RBC Distribution Width 12.7 % (11.5-14.5); Red Blood Cell (RBC) Count 4.04 mill/uL (4.70-6.10); White Blood Cell (WBC) Count 6.7 thou/uL (4.8-10.8)
--- NOTE | 2017-07-21 22:33 | RAD ---
CHEST ONE VIEW 07/21/17 HISTORY: Difficulty swallowing. COMPARISON: Chest radiograph 07/13/17. FINDINGS: Lungs are clear. No pneumothorax or effusion. Cardiac silhouette and mediastinal contours are within normal limits. There appears to be a loop of bowel in the left hemidiaphragm and less likely free air. IMPRESSION: No acute intrathoracic abnormality. POS: [facility]
[2017-07-21 22:40] LABS: INR-International Normal Ratio 1.1; Prothrombin Time 13.8 SEC (12.0-14.7)
[2017-07-21 22:43] LABS: ALT (SGPT) 9 U/L (8-55); AST (SGOT) 13 U/L (5-34); Alkaline Phosphatase 57 U/L (40-150); Anion Gap 12 mmol/L (10-20); BUN (Urea Nitrogen) 21 mg/dL (8.4-25.7); Bilirubin, Total 0.4 mg/dL (0.2-1.2); CK (CPK) 205 U/L (30-200); Calc. Creatinine Clearance 0 mL/min (70-130); Calcium 8.8 mg/dL (7.8-10.44); Carbon Dioxide 23 mmol/L (23-31); Chloride 106 mmol/L (98-107); Estimated GFR-MDRD 53; Globulin 2.7 g/dL (2.4-3.5); Glucose 101 mg/dL (80-115); Potassium 4.2 mmol/L (3.5-5.1); Protein, Total 6.7 g/dL (5.8-8.1); Sodium 137 mmol/L (136-145)
[2017-07-21 22:45] LABS: PTT 28.2 SEC (22.9-36.1)
[2017-07-21 22:46] LABS: CKMB 0.7 ng/mL (0-6.6); Troponin I Less than 0.010 ng/mL (< 0.028)
--- NOTE | 2017-07-21 22:49 | CT ---
CT BRAIN WITHOUT CONTRAST 07/21/17 HISTORY: Difficulty swallowing. COMPARISON: None. FINDINGS: No acute territorial infarct or hemorrhage. No midline shift or mass effect. Ventricular size and ext ra-axial CSF spaces are normal. IMPRESSION: No acute intracranial abnormality. POS: [facility]
--- NOTE | 2017-07-24 14:49 | EKG ---
Test Reason : Blood Pressure : / mmHG Vent. Rate : 070 BPM Atrial Rate : 070 BPM P-R Int : 208 ms QRS Dur : 146 ms QT Int : 410 ms P-R-T Axes : 019 -39 082 degrees QTc Int : 442 ms Normal sinus rhythm Left axis deviation Left bundle branch block Abnormal ECG Does not meet Sgarbosa criteria Left bundle branch block when compared with 04/28/2017 Confirmed by GERALDINE VALENCIA M.D. ([id number]), photographic editor SUMMER TIAN ([id number] on 07/24/2017 2:48:58 PM Referred By: Confirmed By:GERALDINE VALENCIA M.D.
== END 2017-07-22 00:03 | disposition home or self-care (01) ==
LOC: ERS 20:18
DX: R13.10 Dysphagia, unspecified (principal); E78.5 Hyperlipidemia, unspecified; I10 Essential (primary) hypertension; Z79.899 Other long term (current) drug therapy; Z79.82 Long term (current) use of aspirin
CPT/HCPCS: 70450; 71045; 80053; 82553; 83880; 84484; 85025; 85610; 85730; 93005

== ENCOUNTER 2017-08-06 15:14 | Outpatient (CLI) | payer MEDICARE, BC | END 2017-08-06 15:15 | disposition home or self-care (01) | LOC: BICRAD 15:14 | PROVIDERS: ATTEND Internal Medicine | DX: R05 Cough (principal); J34.89 Other specified disorders of nose and nasal sinuses | CPT/HCPCS: 70220 ==

== ENCOUNTER 2018-05-20 20:07 | Emergency (ER) | payer MEDICARE, BC ==
[2018-05-20 20:55] LABS: #Basophils 0.1 thou/uL (0.0-0.2); #Eosinphils 0.2 thou/uL (0.0-0.7); #Monocytes 0.4 thou/uL (0.11-0.59); #Neutrophils 3.8 thou/uL (1.40-6.50); %Basophils 1.6 % (0.0-1.0); %Eosinophils 3.5 % (0.0-10.0); %Monocytes 6.7 % (0.0-10.0); %Neutrophils 57.3 % (42.0-75.0); Hemoglobin 11.8 g/dL (14.0-18.0); Mean Corpuscular HGB CONC 32.6 g/dL (32.0-36.0); Mean Corpuscular Hemoglobin 29.2 pg (27.0-31.0); Mean Corpuscular Volume 89.7 fL (78.0-98.0); Mean Platelet Volume 8.2 fL (7.4-10.4); Platelet Count 174 thou/uL (130-400); RBC Distribution Width 12.6 % (11.5-14.5); Red Blood Cell (RBC) Count 4.05 mill/uL (4.70-6.10); White Blood Cell (WBC) Count 6.5 thou/uL (4.8-10.8)
[2018-05-20 21:15] LABS: ALT (SGPT) 18 U/L (8-55); AST (SGOT) 19 U/L (5-34); Albumin 4.1 g/dL (3.4-4.8); Alkaline Phosphatase 65 U/L (40-150); Anion Gap 9 mmol/L (10-20); BUN (Urea Nitrogen) 23 mg/dL (8.4-25.7); Bilirubin, Total 0.2 mg/dL (0.2-1.2); CK (CPK) 294 U/L (30-200); Calc. Creatinine Clearance 0 mL/min (70-130); Calcium 9.1 mg/dL (7.8-10.44); Carbon Dioxide 26 mmol/L (23-31); Chloride 107 mmol/L (98-107); Estimated GFR-MDRD 48; Globulin 2.8 g/dL (2.4-3.5); Glucose 143 mg/dL (80-115); Potassium 4.1 mmol/L (3.5-5.1); Protein, Total 6.9 g/dL (5.8-8.1); Sodium 138 mmol/L (136-145)
== END 2018-05-20 22:09 | disposition home or self-care (01) ==
LOC: ERS 20:07
DX: R53.83 Other fatigue (principal); I25.10 Atherosclerotic heart disease of native coronary artery without angina pectoris; E78.5 Hyperlipidemia, unspecified; I10 Essential (primary) hypertension; Z79.899 Other long term (current) drug therapy; Z79.82 Long term (current) use of aspirin
CPT/HCPCS: 36415; 80053; 82550; 84443; 84484; 85025; 93005; 94760

== ENCOUNTER 2019-02-25 15:57 | Emergency (ER) | payer MEDICARE, BC ==
[~2019-02-25 15:57] MED LIST: Iopamidol-370 76% 500 ML 1 ML ONE
[2019-02-25 17:00] LABS: #Eosinphils 0.3 thou/uL (0.0-0.7); #Lymphocytes 1.7 thou/uL (1.20-3.40); #Monocytes 0.5 thou/uL (0.11-0.59); %Basophils 0.6 % (0.0-1.0); %Eosinophils 4.1 % (0.0-10.0); %Lymphocytes 26.6 % (21.0-51.0); %Monocytes 7.1 % (0.0-10.0); %Neutrophils 61.6 % (42.0-75.0); Hemoglobin 12.1 g/dL (14.0-18.0); Mean Corpuscular Hemoglobin 29.9 pg (27.0-31.0); Mean Platelet Volume 8.8 fL (7.4-10.4); Platelet Count 171 thou/uL (130-400); RBC Distribution Width 12.6 % (11.5-14.5); Red Blood Cell (RBC) Count 4.04 mill/uL (4.70-6.10); White Blood Cell (WBC) Count 6.5 thou/uL (4.8-10.8)
[2019-02-25 17:04] LABS: Bilirubin Negative (Negative); Blood, Urine Negative (Negative); Clarity Clear (Clear); Glucose, Urine (Dipstick) Normal (Negative); Leukocyte Negative Leu/uL (Negative); Nitrite Negative (Negative); Protein, Urine (Dipstick) Negative (Neg-Trace); Urobilinogen Normal mg/dL (Less than 2)
[2019-02-25 17:21] LABS: ALT (SGPT) 17 U/L (8-55); AST (SGOT) 18 U/L (5-34); Albumin 4.3 g/dL (3.4-4.8); Alkaline Phosphatase 69 U/L (40-110); Anion Gap 12 mmol/L (10-20); BUN (Urea Nitrogen) 13 mg/dL (8.4-25.7); Bilirubin, Total 0.3 mg/dL (0.2-1.2); CRP (Inflammatory) Less than 0.50 mg/dL (= or < 0.5); Calc. Creatinine Clearance 0 mL/min (70-130); Calcium 8.9 mg/dL (7.8-10.44); Carbon Dioxide 24 mmol/L (23-31); Chloride 106 mmol/L (98-107); Estimated GFR-MDRD 52; Globulin 2.9 g/dL (2.4-3.5); Glucose 115 mg/dL (80-115); Potassium 4.5 mmol/L (3.5-5.1); Protein, Total 7.2 g/dL (5.8-8.1); Sodium 137 mmol/L (136-145)
[2019-02-25] MEDS ORDERED: Ondansetron PF 4 MG/2 ML Vial ONE (17:29)
[2019-02-25] MEDS ORDERED: Morphine 4 MG/ML VIAL ONE (17:29)
[2019-02-25] MEDS ORDERED: Diazepam 5 MG TAB ONE (19:18)
--- NOTE | 2019-02-25 19:33 | CT ---
CT ANGIO OF CHEST AND ABDOMEN PERFORMED WITH INTRAVENOUS CONTRAST ENHANCEMENT WITH 3D RECONSTRUCTION: 02/25/19 HISTORY: Severe abdominal pain radiating to back. The lungs are clear of any infiltrative process. There is linear changes in the lung bases which appe ar to represent atelectasis in the right base. The changes in the left base could indicate some early pneumonia type changes. There is no significant mediastinal or hilar adenopathy. The thoracic aorta is normal in caliber and there is no signs of dissection. CT ANGIO OF ABDOMEN PERFORMED WITH INTRAVENOUS CONTRAST ENHANCEMENT: The liver, spleen, pancreas, and gallbladder regions appear unremarkable on this angiographic phase e xam. Calcifications seen associated with the right adrenal gland and a small fat density lesion may r epresent a small myelolipoma. There are bilateral renal cysts present. No obstruction. There is no s ignificant periaortic or mesenteric lymphadenopathy. Some colonic diverticulosis is noted. The thoracic aorta is normal in caliber. There is some slightly eccentric thrombus along the left pos terolateral aspect of the mid infrarenal aorta. No dissection demonstrated. IMPRESSION: 1. No evidence of aortic aneurysm or dissection. 2. Bilateral renal cysts. 3. Minimal colonic diverticulosis. 4. Arthritic changes of the spine. 5. Questionable early left lower lobe infiltrate. POS: [facility]
== END 2019-02-25 21:00 | disposition home or self-care (01) ==
LOC: ERS 15:57
DX: M62.830 Muscle spasm of back (principal); I25.10 Atherosclerotic heart disease of native coronary artery without angina pectoris; E78.5 Hyperlipidemia, unspecified; E78.00 Pure hypercholesterolemia, unspecified; I10 Essential (primary) hypertension; Z79.899 Other long term (current) drug therapy; Z79.82 Long term (current) use of aspirin; Z79.01 Long term (current) use of anticoagulants
CPT/HCPCS: 36415; 71275; 72191; 74175; 80053; 81003; 83690; 83880; 84484; 85025; 86140; 86850; 86900; 86901; 96361; 96374; 96375; J2270; J2405; Q9967

== ENCOUNTER 2019-12-29 19:07 | Emergency (ER) | payer MEDICARE, BC ==
[2019-12-29 21:31] LABS: #Basophils 0.1 thou/uL (0.0-0.2); #Eosinphils 0.2 thou/uL (0.0-0.7); #Monocytes 0.5 thou/uL (0.11-0.59); #Neutrophils 3.5 thou/uL (1.40-6.50); %Eosinophils 2.6 % (0.0-10.0); %Monocytes 7.5 % (0.0-10.0); %Neutrophils 55.9 % (42.0-75.0); Hemoglobin 13.3 g/dL (14.0-18.0); Mean Corpuscular Hemoglobin 30.3 pg (27.0-31.0); Mean Corpuscular Volume 89.1 fL (78.0-98.0); Mean Platelet Volume 8.6 fL (7.4-10.4); Platelet Count 182 thou/uL (130-400); RBC Distribution Width 12.3 % (11.5-14.5); Red Blood Cell (RBC) Count 4.38 mill/uL (4.70-6.10); White Blood Cell (WBC) Count 6.2 thou/uL (4.8-10.8)
[2019-12-29 21:47] LABS: ALT (SGPT) 9 U/L (8-55); AST (SGOT) 15 U/L (5-34); Albumin 4.4 g/dL (3.4-4.8); Alkaline Phosphatase 62 U/L (40-110); Anion Gap 12 mmol/L (10-20); BUN (Urea Nitrogen) 18 mg/dL (8.4-25.7); Bilirubin, Total 0.4 mg/dL (0.2-1.2); Calc. Creatinine Clearance 0 mL/min (70-130); Calcium 9.1 mg/dL (7.8-10.44); Carbon Dioxide 25 mmol/L (23-31); Chloride 104 mmol/L (98-107); Estimated GFR-MDRD 50; Globulin 3.3 g/dL (2.4-3.5); Glucose 112 mg/dL (83-110); Potassium 4.3 mmol/L (3.5-5.1); Protein, Total 7.7 g/dL (5.8-8.1); Sodium 137 mmol/L (136-145)
== END 2019-12-29 23:30 | disposition home or self-care (01) ==
LOC: ERS 19:07
DX: I10 Essential (primary) hypertension (principal); I25.10 Atherosclerotic heart disease of native coronary artery without angina pectoris; E78.5 Hyperlipidemia, unspecified; E78.00 Pure hypercholesterolemia, unspecified; Z79.899 Other long term (current) drug therapy; Z79.82 Long term (current) use of aspirin
CPT/HCPCS: 36415; 80053; 85025; 93005

== ENCOUNTER 2020-03-11 12:31 | Outpatient (CLI) | payer OTHER | END 2020-03-11 12:32 | disposition home or self-care (01) | LOC: ULT 12:31 | PROVIDERS: ATTEND Orthopaedic Surgery | DX: I25.10 Atherosclerotic heart disease of native coronary artery without angina pectoris (principal); I08.1 Rheumatic disorders of both mitral and tricuspid valves | CPT/HCPCS: 93306 ==

== ENCOUNTER 2020-05-29 13:08 | Outpatient (CLI) | payer MEDICARE, BC | END 2020-05-29 13:09 | disposition home or self-care (01) | LOC: BICULT 13:08 | PROVIDERS: ATTEND Internal Medicine Nephrology | DX: I12.9 Hypertensive chronic kidney disease with stage 1 through stage 4 chronic kidney disease, or unspecified chronic kidney disease (principal); N18.30 Chronic kidney disease, stage 3 unspecified; N28.1 Cyst of kidney, acquired; R93.421 Abnormal radiologic findings on diagnostic imaging of right kidney; R93.422 Abnormal radiologic findings on diagnostic imaging of left kidney | CPT/HCPCS: 76770; 93975 ==

== ENCOUNTER 2021-03-30 09:32 | Emergency (ER) | payer MEDICARE, BC | END 2021-03-30 10:02 | disposition home or self-care (01) | LOC: ERS 09:32 | DX: S01.552A Open bite of oral cavity, initial encounter (principal); Y04.1XXA Assault by human bite, initial encounter | CPT/HCPCS: 99282 ==

== ENCOUNTER 2021-10-01 07:36 | Emergency (ER) | payer MEDICARE, BC | END 2021-10-01 09:20 | disposition home or self-care (01) | LOC: ERS 07:36 | DX: Z71.1 Person with feared health complaint in whom no diagnosis is made (principal); I10 Essential (primary) hypertension | CPT/HCPCS: 99282 ==

== ENCOUNTER 2022-03-11 03:29 | Emergency (ER) | payer MEDICARE, BC | END 2022-03-11 04:59 | disposition home or self-care (01) | LOC: ERS 03:29 | DX: J18.9 Pneumonia, unspecified organism (principal); E78.5 Hyperlipidemia, unspecified; I10 Essential (primary) hypertension; Z87.891 Personal history of nicotine dependence; Z79.82 Long term (current) use of aspirin; Z79.899 Other long term (current) drug therapy | CPT/HCPCS: 71045; 87804 ==

== ENCOUNTER 2023-01-11 15:38 | Outpatient (CLI) | payer MEDICARE, BC | END 2023-01-11 15:39 | disposition home or self-care (01) | LOC: BICRAD 15:38 | PROVIDERS: ATTEND Family Medicine | DX: M25.552 Pain in left hip (principal) ==

== ENCOUNTER 2023-05-27 02:45 | Emergency (ER) | payer MEDICARE, BC ==
[2023-05-27 03:29] LABS: #Eosinphils 0.3 thou/uL (0.0-0.7); #Monocytes 0.7 thou/uL (0.11-0.59); #Neutrophils 2.7 thou/uL (1.40-6.50); %Basophils 0.7 % (0.0-1.0); %Eosinophils 5.4 % (0.0-10.0); %Lymphocytes 37.2 % (21.0-51.0); %Monocytes 10.9 % (0.0-10.0); %Neutrophils 45.6 % (42.0-75.0); Hematocrit 36.4 % (42.0-52.0); Hemoglobin 11.9 g/dL (14.0-18.0); Mean Corpuscular HGB CONC 32.7 g/dL (32.0-36.0); Mean Corpuscular Hemoglobin 29.2 pg (27.0-31.0); Mean Corpuscular Volume 89.2 fl (78.0-98.0); Mean Platelet Volume 11.1 fL (7.4-10.4); Platelet Count 207 10x3/uL (130-400); RBC Distribution Width 14.5 % (11.5-14.5); Red Blood Cell (RBC) Count 4.08 mill/uL (4.70-6.10)
[2023-05-27 03:51] LABS: Troponin I 0.012 ng/mL (< 0.028)
[2023-05-27 05:16] LABS: ALT (SGPT) 11 U/L (8-55); AST (SGOT) 15 U/L (5-34); Albumin 3.7 g/dL (3.4-4.8); Alkaline Phosphatase 50 U/L (40-110); Anion Gap 8 mmol/L (10-20); BUN (Urea Nitrogen) 22 mg/dL (8.4-25.7); Bilirubin, Total 0.2 mg/dL (0.2-1.2); Calc. Creatinine Clearance 0 mL/min (70-130); Calcium 8.9 mg/dL (7.8-10.44); Carbon Dioxide 26 mmol/L (23-31); Chloride 108 mmol/L (98-107); Estimated GFR 42; Globulin 2.6 g/dL (2.4-3.5); Glucose 99 mg/dL (83-110); Potassium 4.2 mmol/L (3.5-5.1); Protein, Total 6.3 g/dL (5.8-8.1); Sodium 138 mmol/L (136-145)
== END 2023-05-27 07:26 | disposition home or self-care (01) ==
LOC: ERS 02:45
DX: R00.2 Palpitations (principal); I11.0 Hypertensive heart disease with heart failure; I50.9 Heart failure, unspecified; E78.5 Hyperlipidemia, unspecified; I25.10 Atherosclerotic heart disease of native coronary artery without angina pectoris; Z95.5 Presence of coronary angioplasty implant and graft; Z79.899 Other long term (current) drug therapy; Z79.82 Long term (current) use of aspirin
CPT/HCPCS: 36415; 71045; 80053; 83880; 84484; 85025; 93005

== ENCOUNTER 2023-06-05 13:51 | Emergency (ER) | payer MEDICARE, BC ==
[2023-06-05 15:40] LABS: Influenza A by NAA Not Detected (NotDetected); Influenza B by NAA Not Detected (NotDetected); SARS-CoV-2 NAA Rapid Test Not Detected (NotDetected)
== END 2023-06-05 16:13 | disposition home or self-care (01) ==
LOC: ERS 13:51
DX: J06.9 Acute upper respiratory infection, unspecified (principal); I11.0 Hypertensive heart disease with heart failure; I50.9 Heart failure, unspecified; K21.9 Gastro-esophageal reflux disease without esophagitis; E78.5 Hyperlipidemia, unspecified; Z55.6 Problems related to health literacy; Z79.82 Long term (current) use of aspirin; Z79.899 Other long term (current) drug therapy
CPT/HCPCS: 0240U; 71045; 93005